=== PATIENT | female | born 1940 | race Caucasian/White ===

== ENCOUNTER 2016-07-06 13:10 | Observation (INO) | payer BC ==
[~2016-07-06] VITALS: Ht 162.6 cm; Wt 86.7 kg
[~2016-07-06 13:10] MED LIST: ACIPHEX20 MG; ASPIR-LOW81 MG PO; ATORVASTATIN CA10 MG PO; BYETTA5 MCG/0.02; CIPRO250 MG PO; CYMBALTA20 MG PO; DILTIAZEM 24HR360 M1 PO; DONEPEZIL HCL10 MG PO; DULOXETINE HCL20 MG PO; FLAX OIL1000 MG; FOLTX TABLET1 EAC1 PO; GINKGO60 MG; GLUCOPHAGE1000 M1 PO; HUMALOG MI100 UNIT/6 SC; HUMALOG MIX; LANTUS100 UNIT/1; LASIX10 MG; LATANOPROST2.5 ML BOTH EYES; LEVEMIR FL100 UNIT/1 SC; LEVOTHYROXINE125 MCG PO; LIPITOR5 MG; METOPROLOL SUCC25 MG PO; MIRTAZAPINE15 MG PO; MIRTAZAPINE30 MG PO; NORCO 5/3251 TABLET PO; NOVOLOG MI100 UNIT/M SC; OSTERA TABLET1 EACH PO; SINGULAIR10 MG; SYNTHROID25 MCG PO; TOPROL XL6.25 MG PO; VESICARE10 MG PO; VICTOZA 2-0.6 MG/0.1 SC; VICTOZA0.6 MG/0.1 SC; ZOFRAN4 MG PO; ZOLPIDEM TARTRAT5 MG PO
[2016-07-06 13:39] LABS: HEMATOCRIT 43.2 % (36.0-46.0); MCH 30.9 PG (29.0-34.0); MCHC 34.3 G/DL (30.0-36.0); MCV 90.2 FL (83-99); MEAN PLAT.VOLUME 11.5 uM^3 (9.5-12.4); PLATELET COUNT 252 K/uL (156-360); RBC DIS.WIDTH-CV 13.8 % (11.8-14.6); RBC DIS.WIDTH-SD 44.9 % (39-53); RED BLOOD COUNT 4.79 M/uL (3.80-5.20); WHITE BLOOD COUNT 8.3 K/uL (4.1-10.2)
[2016-07-06 13:47] LABS: CHLORIDE 107 mEq/L (99-109)
[2016-07-06 13:48] LABS: POTASSIUM 4.1 mEq/L (3.7-5.4); SODIUM 141 mEq/L (136-147)
[2016-07-06 13:49] LABS: GLUCOSE 291 mg/dL (70-99)
[2016-07-06 13:51] LABS: ANION GAP 12 MEQ/L (2-14)
[2016-07-06 13:53] LABS: GFR ESTIMATE (CALCULATED) > 59 mL/min/
[2016-07-06 13:54] LABS: UREA NITROGEN (BUN) 12 mg/dL (9-23)
[2016-07-06 15:16] LABS: POINT-OF-CARE METER ID UU13113702
[2016-07-06 16:47] LABS: ADD MIUA? NO; BILIRUBIN NEGATIVE; BLOOD NEGATIVE; COLOR YELLOW ((YELLOW)); GLUCOSE (STRIP) >=500; KETONES 5; LEUKOCYTES NEGATIVE; NITRITE NEGATIVE; PROTEIN (STRIP) NEGATIVE; SPECIFIC GRAVITY 1.018 (1.000-1.030); UROBILINOGEN 0.2 MG/DL (0.2-1.0)
[2016-07-06] MEDS ORDERED: CYMBALTA20 MG PO (19:53)
[2016-07-06] MEDS ORDERED: JANUVIA100 MG PO (19:54)
[2016-07-06] MEDS ORDERED: OXYBUTYNIN CHLOR5 M1 PO (19:54)
[2016-07-06] MEDS ORDERED: HUMULIN SC ×3 (19:55)
[2016-07-06 21:30] LABS: POINT-OF-CARE METER ID UU14162513
[2016-07-06 21:38] VITALS: BP 121/65
[2016-07-07 00:48] VITALS: BP 142/67
[2016-07-07 04:05] VITALS: BP 143/68
[2016-07-07 08:20] LABS: POINT-OF-CARE METER ID UU13113700
[2016-07-07 08:24] VITALS: BP 120/83
[2016-07-07] MEDS ORDERED: LIDOCAINE700 MG TD (09:35)
[2016-07-07] MEDS ORDERED: ENDOCET 5-3251 EACH PO (09:35)
[2016-07-07] MEDS ORDERED: CELECOXIB200 MG PO (09:35)
[2016-07-07] MEDS ORDERED: CYCLOBENZAPRINE5 MG PO (09:35)
== END 2016-07-07 15:46 | disposition home health service (06) ==
LOC: EME 13:10 → EDOF 19:45 → 5WEST 21:02
PROVIDERS: Emergency Medicine; Hospitalist
DX: S33.5XXA Sprain of ligaments of lumbar spine, initial encounter (principal); X58.XXXA Exposure to other specified factors, initial encounter; G89.29 Other chronic pain; G47.33 Obstructive sleep apnea (adult) (pediatric); E11.40 Type 2 diabetes mellitus with diabetic neuropathy, unspecified; E11.65 Type 2 diabetes mellitus with hyperglycemia; J44.9 Chronic obstructive pulmonary disease, unspecified; I10 Essential (primary) hypertension; K21.9 Gastro-esophageal reflux disease without esophagitis; F32.9 Major depressive disorder, single episode, unspecified; F60.7 Dependent personality disorder; Z86.73 Personal history of transient ischemic attack (TIA), and cerebral infarction without residual deficits; Z87.891 Personal history of nicotine dependence; I73.9 Peripheral vascular disease, unspecified; E03.9 Hypothyroidism, unspecified; E66.9 Obesity, unspecified; Z79.4 Long term (current) use of insulin; E78.5 Hyperlipidemia, unspecified
CPT/HCPCS: 71020; 74176; 80048; 81003; 82948; 85027; 94660; 99281; 99285; G0378; G8978 GP CJ; G8979 GP CH; J1170; J1200; J1644; J1815; J1885; J2270; J2405; J3360; J7030; J7050

== ENCOUNTER 2016-12-21 09:51 | Emergency (ER) | payer OTHER, MEDICARE ==
[~2016-12-21] VITALS: Ht 162.6 cm; Wt 93.0 kg
[~2016-12-21 09:51] MED LIST changes: +CELECOXIB200 MG PO; +CYCLOBENZAPRINE5 MG PO; +ENDOCET 5-3251 EACH PO; +HUMULIN SC; +JANUVIA100 MG PO; +LIDOCAINE700 MG TD; +OXYBUTYNIN CHLOR5 M1 PO
[2016-12-21 10:10] LABS: POINT-OF-CARE METER ID UU13113778
[2016-12-21 11:26] VITALS: BP 157/71
== END 2016-12-21 11:38 | disposition home or self-care (01) ==
LOC: EME 09:51
DX: S30.851A Superficial foreign body of abdominal wall, initial encounter (principal); W45.8XXA Other foreign body or object entering through skin, initial encounter; E11.9 Type 2 diabetes mellitus without complications; Z79.4 Long term (current) use of insulin; K59.00 Constipation, unspecified; I10 Essential (primary) hypertension; F03.90 Unspecified dementia, unspecified severity, without behavioral disturbance, psychotic disturbance, mood disturbance, and anxiety; Z87.891 Personal history of nicotine dependence
CPT/HCPCS: 74020; 82948; 99281; 99284

== ENCOUNTER 2017-08-07 07:09 | Emergency (ER) | payer OTHER, MEDICARE ==
[~2017-08-07] VITALS: Ht 152.4 cm; Wt 92.5 kg
[2017-08-07 08:58] LABS: HEMATOCRIT 41.6 % (36.0-46.0); HEMOGLOBIN 13.9 G/DL (11.9-15.5); MCH 32.6 PG (29.0-34.0); MCHC 33.4 G/DL (30.0-36.0); MCV 97.4 FL (83-99); RBC DIS.WIDTH-CV 13.9 % (11.8-14.6); RBC DIS.WIDTH-SD 49.7 % (39-53); RED BLOOD COUNT 4.27 M/uL (3.80-5.20); WHITE BLOOD COUNT 11.9 K/uL (4.1-10.2)
[2017-08-07 09:02] LABS: APPEARANCE CLEAR ((CLEAR)); BILIRUBIN NEGATIVE; BLOOD NEGATIVE; COLOR STRAW ((YELLOW)); GLUCOSE (STRIP) NEGATIVE; KETONES NEGATIVE; LEUKOCYTES TRACE; NITRITE NEGATIVE; PROTEIN (STRIP) NEGATIVE; SPECIFIC GRAVITY 1.004 (1.000-1.030); UROBILINOGEN 0.2 MG/DL (0.2-1.0)
[2017-08-07 09:09] LABS: CHLORIDE 106 mEq/L (99-109); POTASSIUM 4.4 mEq/L (3.7-5.4); SODIUM 143 mEq/L (136-147)
[2017-08-07 09:11] LABS: GLUCOSE 123 mg/dL (70-99)
[2017-08-07 09:11] LABS: BACTERIA NONE SEEN /HPF; EPITHELIAL CELLS RARE /HPF; MUCUS TRACE /LPF; RED BLOOD CELLS 0-5 /HPF (0-5)
[2017-08-07 09:15] LABS: CREATININE 0.8 mg/dL (0.6-1.3); GFR ESTIMATE (CALCULATED) > 59 mL/min/
[2017-08-07 09:16] LABS: UREA NITROGEN (BUN) 14 mg/dL (9-23)
[2017-08-07 09:24] LABS: TROP-I INTERPRETATION NEGATIVE; TROPONIN-I 0.01 ng/mL (0.0-0.30)
[2017-08-07 09:44] LABS: PLAT.SUFFICIENCY ADEQUATE; PLATELET COUNT 211 K/uL (156-360)
[2017-08-07 12:57] VITALS: BP 132/62
== END 2017-08-07 12:57 | disposition home or self-care (01) ==
LOC: EME 07:09
PROVIDERS: Nurse Practitioner Family
DX: R53.1 Weakness (principal); R29.6 Repeated falls; M25.511 Pain in right shoulder; R42 Dizziness and giddiness; K21.9 Gastro-esophageal reflux disease without esophagitis; I10 Essential (primary) hypertension; E11.9 Type 2 diabetes mellitus without complications; F03.90 Unspecified dementia, unspecified severity, without behavioral disturbance, psychotic disturbance, mood disturbance, and anxiety; F32.9 Major depressive disorder, single episode, unspecified; Z86.73 Personal history of transient ischemic attack (TIA), and cerebral infarction without residual deficits; Z87.891 Personal history of nicotine dependence; Z79.4 Long term (current) use of insulin; Z88.5 Allergy status to narcotic agent; Z88.0 Allergy status to penicillin; Z88.6 Allergy status to analgesic agent
CPT/HCPCS: 70450; 73030; 80048; 80048 91; 81003; 84484; 85027; 85610; 85730; 99281; 99285; G8978 GP CK; G8979 CJ; G8980 GP CK; G8987 GO CM; G8988 GO CH; G8989 GO CM